=== PATIENT | female | born 1965 | race Caucasian/White ===

== ENCOUNTER 2017-11-08 11:18 | Emergency (ER) | payer BC ==
[~2017-11-08] VITALS: Ht 152.4 cm; Wt 63.7 kg
[~2017-11-08 11:18] MED LIST: FLUO20CA35 PO; ONDA4TAB46 PO; PANT40TA PO; PROM25TA PO; TEMA15CA4 PO
[2017-11-08 11:25] VITALS: TEMP 36.7; Ht 152.4 cm; Wt 63.7 kg
[2017-11-08] MEDS ORDERED: OPTIRAY 320 IV PRN (11:45)
[2017-11-08 11:57] LABS: BASO % 0.3 %; BASO ABS # 0.03 K/uL (0-0.2); EOS % 1.1 %; EOS ABS # 0.11 K/uL (0-0.5); HEMATOCRIT 48.1 % (37-47); HEMOGLOBIN 16.3 g/dL (12.0-16.0); IG# 0.03 K/uL (0.00-0.02); LYMPH % 36.6 %; LYMPH ABS # 3.57 K/uL (1.2-3.4); MEAN CELL VOLUME 89.1 fL (80-100); MEAN CORPUSCULAR HEMOGLOBIN 30.2 pg (25-34); MEAN CORPUSCULAR HGB CONC 33.9 g/dl (32-36); MEAN PLATELET VOLUME 10.9 fL (7.4-10.4); MONO % 8.7 %; MONO ABS # 0.85 K/uL (0.11-0.59); NEUT ABS # 5.16 K/uL (1.4-6.5); PLATELET COUNT 268 K/uL (130-400); RED CELL DISTRIBUTION WIDTH CV 13.2 % (11.5-14.5); RED CELL DISTRIBUTION WIDTH SD 42.6 fL (36.4-46.3); WHITE BLOOD COUNT 9.75 K/uL (4.8-10.8)
[2017-11-08] MEDS ORDERED: MoRPHine SULFATE 4 MG/ML 1 ML CARP\\VIAL IV STA (12:01)
[2017-11-08] MEDS ORDERED: ONDANSETRON INJ 2 MG/ML 2 ML VIAL IV STA (12:01)
[2017-11-08 12:15] LABS: CALCIUM 9.3 mg/dl (8.5-10.1); CREATININE 0.87 mg/dl (0.60-1.20); POTASSIUM 3.8 mmol/L (3.5-5.1)
[2017-11-08] MEDS ORDERED: AMPICILLIN/SULBACTAM SOD INJ 3,000 MG in SODIUM CHLORIDE 0.9% 100ML 100 ML IV ONE (12:15)
--- NOTE | 2017-11-08 13:33 | DIAGNOSTIC IMAGING REPORT ---
MAXILLOFACIAL CT WITH CONTRAST CLINICAL HISTORY: Facial and neck swelling. Screws removed from left side of jaw on Thursday. COMPARISON STUDY: No previous studies for comparison. TECHNIQUE: Maxillofacial CT was performed following intravenous injection of 93 cc of Optiray 320 IV. Sagittal and coronal reconstructions were viewed. FINDINGS: Visualized portions of the intracranial contents are unremarkable. Alignment of the temporomandibular joints is anatomic. Right mandibular internal fixation hardware is in place. Left mandibular hardware has been removed. Within the operative bed, along the lateral aspect of the posterior body and angle of the left hemimandible, there is a 1.9 x 0.5 x 1.6 cm rim-enhancing fluid collection which contains a small amount of fluid and gas. This is nonspecific in the early postoperative setting. No additional fluid collections are identified on this exam. Airway is patent. 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 Orbits are within normal limits. Mastoid air cells are clear. Visualized intracranial contents are unremarkable. IMPRESSION: 1.9 x 0.5 x 1.6 cm rim-enhancing fluid collection which contains a small amount of gas within the operative bed, along the lateral aspect of the posterior body and angle of the left hemimandible at site of hardware removal. This is not unexpected in the early postoperative setting and could reflect postsurgical change. A small abscess could appear similar. Minimal adjacent infiltration. No additional fluid collections. Electronically signed by: Hector Arceo M.D. 11/08/2017 1:32 PM Dictated Date/Time: 11/08/2017 1:23 PM
--- NOTE | 2017-11-08 13:36 | DIAGNOSTIC IMAGING REPORT ---
CT OF THE NECK WITH CONTRAST CLINICAL HISTORY: Left facial swelling. Evaluate for abscess. Recent hardware removal. COMPARISON STUDY: No previous studies for comparison. TECHNIQUE: Axial images of the neck were obtained following intravenous injection of 93 cc of Optiray 320 IV. Sagittal and coronal reconstructions were viewed. FINDINGS: Visualized portions of the intracranial contents are unremarkable. Alignment of the temporomandibular joints is anatomic. Right mandibular internal fixation hardware is in place. Left mandibular hardware has been removed. Within the operative bed, along the lateral aspect of the posterior body and angle of the left hemimandible, there is a 1.9 x 0.5 x 1.6 cm rim-enhancing fluid collection which contains a small amount of gas. This is nonspecific in the early postoperative setting. No additional fluid collections are identified on this exam. Airway is patent. 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 Orbits are within normal limits. Mastoid air cells are clear. Visualized intracranial contents are unremarkable. Lung apices are clear. There is no cervical lymphadenopathy. There are no suspicious osseous lesions. A subcentimeter left lobe thyroid nodule is noted. Major vasculature of the neck is patent. IMPRESSION: 1.9 x 0.5 x 1.6 cm operative bed fluid collection along the lateral aspect of the posterior body and angle of the left hemimandible at site of hardware removal. This is not unexpected in the early postoperative setting and could reflect postsurgical change. However, a small abscess could appear similar. Minimal adjacent infiltration. No additional fluid collections. Electronically signed by: Hector Arceo M.D. 11/08/2017 1:35 PM Dictated Date/Time: 11/08/2017 1:32 PM
[2017-11-08] MEDS ORDERED: DEXAMETHASONE SOD INJ 4 MG/ML VIAL IV STA (14:05)
[2017-11-08 14:11] VITALS: BP 138/87; PULSE 79; O2SAT 94
--- NOTE | 2017-11-08 14:11 | EMERGENCY ROOM VISIT NOTE ---
History Report prepared by Cindy: Kemal Nevarez Under the Supervision of: Dr. Bobby Duffy D.O. First contact with patient: 11:23 Chief Complaint: DENTAL PAIN Stated Complaint: SWOLLEN, THROAT FEELS CLOSED/POST SURGERY History of Present Illness The patient is a 52 year old female who presents to the Emergency Room with complaints of worsening facial pain and swelling beginning two days ago. The patient has a history of prior TMJ surgery (20 years ago) with hardware placement. She was seen by Dr. Huerta of Oral & Maxillofacial surgery and was found to have her surgical screws backing out. Dr. Huerta removed the screws surgically two days ago. The patient called him today for increased pain and swelling of the area. Dr. Huerta would like facial CT to rule out abscess. The patient also complains of nausea. Source of History: patient Onset: Two days ago Position: head (face) Quality: other (pain and swelling) Timing: worsening Associated Symptoms: + nausea Review of Systems See HPI for pertinent positives & negatives. A total of 10 systems reviewed and were otherwise negative. Past Medical & Surgical Medical Problems: (1) Depression (2) Insomnia Family History No pertinent family history stated. Social History Alcohol Use: occasionally Current/Historical Medications Scheduled Fluoxetine (Prozac), 20 MG PO DAILY Ondansetron Hcl (Zofran), 4 MG PO Q6HR PRN Pantoprazole (Protonix), 40 MG PO BID Promethazine (Phenergan), 25 MG PO Q6-8HR PRN Temazepam (Restoril), 15-30 MG PO HS Allergies Coded Allergies: Penicillins (Verified Allergy, Unknown, ., 11/08/17) Physical Exam Vital Signs Date Time Temp Pulse Resp B/P (MAP) Pulse Ox O2 Delivery O2 Flow Rate FiO2 11/08/17 13:25 84 18 146/109 96 Room Air 11/08/17 11:25 36.7 88 18 131/84 97 Room Air Physical Exam CONSTITUTIONAL/VITAL SIGNS: Reviewed / noted above. GENERAL: Non-toxic in appearance. INTEGUMENTARY: Warm, dry, and Norris. HEAD: Normocephalic. EYES: without scleral icterus or trauma. ENT/OROPHARYNX: Left sided mandibular swelling and tenderness. Tenderness and swelling in the left inframandibular region. Intraorally, there is no obvious drainage. Tenderness to palpation in the intraoral post-surgical area as well as increased discomfort with opening jaw. LYMPHADENOPATHY/NECK: Is supple without lymphadenopathy or meningismus. RESPIRATORY: Lungs clear and equal. CARDIOVASCULAR: Regular rate and rhythm. GI/ABDOMEN: Soft and nontender. No organomegaly or pulsatile mass. No rebound or guarding. Normal bowel sounds. EXTREMITIES: Warm and well perfused. BACK: No CVA tenderness. NEUROLOGICAL: Intact without focal deficits. PSYCHIATRIC: normal affect. MUSCULOSKELETAL: Normally developed with good muscle tone. Medical Decision & Procedures ER Provider Diagnostic Interpretation: Radiology results as stated below per my review and radiologist interpretation: CT OF THE NECK WITH CONTRAST FINDINGS: Visualized portions of the intracranial contents are unremarkable. Alignment of the temporomandibular joints is anatomic. Right mandibular internal fixation hardware is in place. Left mandibular hardware has been removed. Within the operative bed, along the lateral aspect of the posterior body and angle of the left hemimandible, there is a 1.9 x 0.5 x 1.6 cm rim-enhancing fluid collection which contains a small amount of gas. This is nonspecific in the early postoperative setting. No additional fluid collections are identified on this exam. Airway is patent. 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 Orbits are within normal limits. Mastoid air cells are clear. Visualized intracranial contents are unremarkable. Lung apices are clear. There is no cervical lymphadenopathy. There are no suspicious osseous lesions. A subcentimeter left lobe thyroid nodule is noted. Major vasculature of the neck is patent. IMPRESSION: 1.9 x 0.5 x 1.6 cm operative bed fluid collection along the lateral aspect of the posterior body and angle of the left hemimandible at site of hardware removal. This is not unexpected in the early postoperative setting and could reflect postsurgical change. However, a small abscess could appear similar. Minimal adjacent infiltration. No additional fluid collections. Electronically signed by: Hector Arceo M.D. 11/08/2017 1:[address] WITH CONTRAST FINDINGS: Visualized portions of the intracranial contents are unremarkable. Alignment of the temporomandibular joints is anatomic. Right mandibular internal fixation hardware is in place. Left mandibular hardware has been removed. Within the operative bed, along the lateral aspect of the posterior body and angle of the left hemimandible, there is a 1.9 x 0.5 x 1.6 cm rim-enhancing fluid collection which contains a small amount of fluid and gas. This is nonspecific in the early postoperative setting. No additional fluid collections are identified on this exam. Airway is patent. 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 Orbits are within normal limits. Mastoid air cells are clear. Visualized intracranial contents are unremarkable. IMPRESSION: 1.9 x 0.5 x 1.6 cm rim-enhancing fluid collection which contains a small amount of gas within the operative bed, along the lateral aspect of the posterior body and angle of the left hemimandible at site of hardware removal. This is not unexpected in the early postoperative setting and could reflect postsurgical change. A small abscess could appear similar. Minimal adjacent infiltration. No additional fluid collections. Electronically signed by: Hector Arceo M.D. 11/08/2017 1:32 PM Laboratory Results 11/08/17 11:40 Red Blood Count 5.40, Mean Corpuscular Volume 89.1, Mean Corpuscular Hemoglobin 30.2, Mean Corpuscular Hemoglobin Concent 33.9, Mean Platelet Volume 10.9, Neutrophils (%) (Auto) 53.0, Lymphocytes (%) (Auto) 36.6, Monocytes (%) (Auto) 8.7, Eosinophils (%) (Auto) 1.1, Basophils (%) (Auto) 0.3, Neutrophils # (Auto) 5.16, Lymphocytes # (Auto) 3.57, Monocytes # (Auto) 0.85, Eosinophils # (Auto) 0.11, Basophils # (Auto) 0.03 11/08/17 11:40 Test 11/08/17 11:40 White Blood Count 9.75 K/uL (4.8-10.8) Red Blood Count 5.40 M/uL (4.2-5.4) Hemoglobin 16.3 g/dL (12.0-16.0) Hematocrit 48.1 % (37-47) Mean Corpuscular Volume 89.1 fL (80-100) Mean Corpuscular Hemoglobin 30.2 pg (25-34) Mean Corpuscular Hemoglobin Concent 33.9 g/dl (32-36) Platelet Count 268 K/uL (130-400) Mean Platelet Volume 10.9 fL (7.4-10.4) Neutrophils (%) (Auto) 53.0 % Lymphocytes (%) (Auto) 36.6 % Monocytes (%) (Auto) 8.7 % Eosinophils (%) (Auto) 1.1 % Basophils (%) (Auto) 0.3 % Neutrophils # (Auto) 5.16 K/uL (1.4-6.5) Lymphocytes # (Auto) 3.57 K/uL (1.2-3.4) Monocytes # (Auto) 0.85 K/uL (0.11-0.59) Eosinophils # (Auto) 0.11 K/uL (0-0.5) Basophils # (Auto) 0.03 K/uL (0-0.2) RDW Standard Deviation 42.6 fL (36.4-46.3) RDW Coefficient of Variation 13.2 % (11.5-14.5) Immature Granulocyte % (Auto) 0.3 % Immature Granulocyte # (Auto) 0.03 K/uL (0.00-0.02) Anion Gap 6.0 mmol/L (3-11) Est Creatinine Clear Calc Drug Dose 63.7 ml/min Estimated GFR () 89.4 Estimated GFR (Non- 77.1 BUN/Creatinine Ratio 11.8 (10-20) Calcium Level 9.3 mg/dl (8.5-10.1) Laboratory results as stated above per my review. Medications Administered Medications (Trade) Dose Ordered Sig/Fletcher Route Start Time Stop Time Status Last Admin Dose Admin Morphine Sulfate (MoRPHine SULFATE INJ) 4 mg NOW STAT IV 11/08/17 12:01 11/08/17 12:02 DC 11/08/17 12:08 4 MG Ondansetron HCl (Zofran Inj) 4 mg NOW STAT IV 11/08/17 12:01 11/08/17 12:02 DC 11/08/17 12:08 4 MG Ampicillin Sodium/ Sulbactam Sodium 3000 mg/Sodium Chloride 108 ml @ 200 mls/hr ONE ONCE IV 11/08/17 12:15 11/08/17 12:47 DC 11/08/17 13:26 200 MLS/HR ED Course 1133: Previous medical records were reviewed. The patient was evaluated in room B5. A complete history and physical examination was performed. 1201: Ordered Zofran Inj 4 mg IV, Morphine Sulfate 4 mg IV. 1215: Ordered Ampicillin Sodium/Sulbactam Sodium 3000 mg/Sodium Chloride 108 ml @ 200 mls/hr IV. 1405: On reevaluation, the patient is resting comfortably. I discussed the results and findings with the patient. She verbalized agreement of the treatment plan. She was discharged home. Medical Decision Differential diagnosis: Etiologies such as cellulitis, abscess, MRSA infection, DVT, necrotizing fasciitis, dermatitis, drug eruption, as well as others were entertained.. This is a 52-year-old female who presents to the ED with a chief complaint of face and neck discomfort and swelling after having a couple of screws removed from the left jaw related to a previous TMJ surgery over 20 years ago. The patient had the screws removed a couple of days ago at Dr. Huerta's office. The patient came in for evaluation of this as her pain had increased. I did speak with Dr. Huerta about this. He recommended a CT scan to further evaluate the situation. The patient CT scan reveals a 1.9 x 0.5 x 1.6 cm fluid collection that is postsurgical versus early small abscess. There is minimal tissue infiltration. The CBC was normal and the PRP was normal. The patient does have an exam suggestive of tenderness and some swelling to the left mandibular region and inframandibular region. She is currently on Augmentin. The patient was told the results of the test. Dr. Huerta and I discussed the results. He does not feel the patient requires any additional treatment at this time and will continue antibiotics. She does have pain medication at home. She was given a dose of IV Decadron, IV morphine, IV Zofran and IV Unasyn here. Medication Reconcilliation Current Medication List: was personally reviewed by me Blood Pressure Screening Patient's blood pressure: Elevated blood pressure Blood pressure disposition: Elevated BP felt to be situational Consults Time Called: 1347 Consulting Physician: Dr. Huerta - Oral & Maxillofacial Surgery Returned Call: [phone] Discussed the patient's case. Dr. Huerta has reviewed the patient's results. He does not believe there was anything indicating intervention at this time. He recommends the patient be continued on antibiotics, and have her pain managed. Impression Primary Impression: Facial swelling Scribe Attestation The scribe's documentation has been prepared under my direction and personally reviewed by me in its entirety. I confirm that the note above accurately reflects all work, treatment, procedures, and medical decision making performed by me. Departure Information Dispostion Home / Self-Care Referrals No Doctor, Assigned (PCP) Patient Instructions My [facility] Additional Instructions Continue your antibiotic and pain medication. Follow-up with your doctor for further care and evaluation in 1-5 days. Return to the emergency department for worsening or new symptoms or any concerns. You have been examined and treated today on an emergency basis only. This is not a substitute for, or an effort to provide, complete comprehensive medical care. It is impossible to recognize and treat all injuries or illnesses in a single emergency department visit. It is therefore important that you follow up closely with your doctor. Call as soon as possible for an appointment.
[2017-11-08] MEDS ORDERED: AMOX875T PO (14:23)
== END 2017-11-08 14:37 | disposition home or self-care (01) ==
LOC: C.EDB 11:20
DX: R22.0 Localized swelling, mass and lump, head (principal); R11.0 Nausea; F32.9 Major depressive disorder, single episode, unspecified; Z98.890 Other specified postprocedural states; Z79.899 Other long term (current) drug therapy; Z88.0 Allergy status to penicillin